=== PATIENT | female | born 1970 | race Asian ===

== ENCOUNTER 2024-07-07 08:08 | Outpatient (CLI) | payer BC | END 2024-07-07 08:09 | disposition home or self-care (01) | LOC: SCSMRI 08:08 | PROVIDERS: ATTEND Student in an Organized Health Care Education/Training Program | DX: D32.0 Benign neoplasm of cerebral meninges (principal); H53.459 Other localized visual field defect, unspecified eye; R90.82 White matter disease, unspecified | CPT/HCPCS: 70553; 76014; 76376 ==